=== PATIENT | female | born 1995 ===

== ENCOUNTER 2025-01-09 12:03 | Outpatient (CLI) | payer BC, SELFPAY ==
--- NOTE | 2025-01-09 12:15 | CRLHL7_ITS ---
For Patients: As a result of the Century Cures Act, medical imaging exams and procedure reports are released immediately into your electronic medical record. You may view this report before your referring provider. If you have questions, please contact your health care provider. OB ULTRASOUND SURVEY LMP: 08/18/2024. LUCIE by LMP: 05/25/2025. GA: 20 w, 4 d. INDICATION: anatomy. TECHNIQUE: Real time grayscale imaging of the fetus was performed. Evaluate anatomy. Transabdominal imaging performed. position: Vertex. Cervix: Visualized. Technique: Transabdominal. Length of closed cervix: 3.5 cm. Placenta/cord: Anterior. Technique: Transabdominal. Placenta tip to internal OS: 3.6 cm. Umbilical Cord: 3-vessel cord. Placenta insertion: Central. Amniotic Fluid: 3.9 cm SDP (greater than/equal to: 2- less than 8 cm). SURVEY: Observed Structures. Calvarium/Spine: Cerebellum: 2.1 cm, 21 w 2 d. Cisterna Magna: 3.4 mm. Nuchal Fold: 4.2 mm. Lateral Ventricle: 6.8 mm. CSP: Yes. Midline Falx: Yes. Choroid Plexus: Yes. Spine: Yes. Abdomen: Stomach: Yes. Abd Cord Insertion: Yes. Urinary Bladder: Yes. Kidneys: Yes. Diaphragm: Yes. Face: Nose/lips: Yes. Orbital view: Yes. Profile: Yes. Limbs: Upper Extremities: Yes. Lower Extremities: Yes. Hands: Yes. Feet: Yes. Vascular: 4-Chamber Heart: Yes. LVOT: Yes. RVOT: Yes. 3VV: Yes. 3VTV: Yes. BPD: 4.7 cm. 20 w, 2 d, 39.1%. HC: 17.9 cm. 20 w, 3 d, 32.1%. AC: 16.1 cm. 21 w, 1 d, 65.2%. FL: 3.5 cm. 21 w, 0 d, 57.2%. FL/AC ratio: 21.65%. HC/AC ratio: 1.11. heart rate: 154 bpm. age by this US: 20 w, 6 d. LUCIE by this US: 05/23/2025. EFW: 393.14g. Weight: 0 lbs., 14 oz. Percentile by LUCIE: 70.0%. IMPRESSION: 1. Concordance of clinical and sonographic dating. 2. Normal anatomic survey. Rufino Arrington M.D. Diagnostic Radiologist [email or web address] [email or web address] [email or web address]/Dictated by: Rufino Arrington MD @ 01/09/2025 4:01:00 PM (Electronically Signed)
== END 2025-01-09 12:04 | disposition home or self-care (01) ==
PROVIDERS: Visit Provider Advanced Practice Midwife
DX: Z34.92 Encounter for supervision of normal pregnancy, unspecified, second trimester (principal); Z3A.20 20 weeks gestation of pregnancy
CPT/HCPCS: 76805